=== PATIENT | female | born 1955 | race African-American/Black ===

== ENCOUNTER 2018-09-01 14:33 | Emergency (ER) | payer BC, OTHER ==
[2018-09-01 14:49] VITALS: BMI 31.5
--- NOTE | 2018-09-01 15:03 | PDOC ---
Attending Attestation - Resident Resident Name: Pamela Simms - ED Attending Attestation I have performed the following: I have examined & evaluated the patient, The case was reviewed & discussed with the resident, I agree w/resident's findings & plan, Exceptions are as noted - HPI HPI: 63 yo F history COPD/asthma presents with cough for past 3 weeks. She denies any change in sputum, but the cough is new from her baseline. +TREVINO. She has not been using her inhalers due to financial concerns (she states she has a high deductible for her insurance). No fever. - Physicial Exam PE: GENERAL: Awake, alert, and fully oriented, in no acute distress HEAD: No signs of trauma EYES: PERRLA, EOMI, sclera anicteric, conjunctiva clear ENT: Auricles normal inspection, hearing grossly normal, nares patent, oropharynx clear without exudates. Moist mucosa NECK: Normal ROM, supple, no lymphadenopathy, JVD, or masses LUNGS: Dec air entry B/L with intermittent dry, hacking cough. Scattered exp wheezes. HEART: Regular rate and rhythm, normal S1 and S2, no murmurs, rubs or gallops ABDOMEN: Soft, nontender, normoactive bowel sounds. No guarding, no rebound. No masses EXTREMITIES: Normal range of motion, no edema. No clubbing or cyanosis. No cords, erythema, or tenderness NEUROLOGICAL: Cranial nerves II through XII grossly intact. Normal speech, normal gait SKIN: Warm, Dry, normal turgor, no rashes or lesions noted. - Medical Decision Making Sxs likely bronchitis. Will treat with steroids, nebs, and azithro. CXR no acute findings. Stable for DC home.
[2018-09-01] MEDS ORDERED: IBUPROFEN 400 MG TABLET (FP) PO ONE (15:11)
[2018-09-01] MEDS ORDERED: predniSONE 20 MG TABLET (UD) PO ONE (15:11)
[2018-09-01] MEDS: ALBUTEROL SO4 2.5/IPRATROPIUM 0.5 INH SOL 3 ML VIAL.NEB. NEB SCH ×4 (15:15→16:05)
[2018-09-01] MEDS ORDERED: ALBUTEROL SO4 2.5/IPRATROPIUM 0.5 INH SOL 3 ML VIAL.NEB. NEB ONE ×2 (15:16→16:04)
[2018-09-01] MEDS ORDERED: predniSONE 20 MG TABLET (UD) ONE (15:16)
[2018-09-01] MEDS ORDERED: IBUPROFEN 600 MG TABLET (FP) PO ONE (15:17)
--- NOTE | 2018-09-01 15:31 | PDOC ---
History of Present Illness - General Chief Complaint: Shortness of Breath Stated Complaint: DIFF. BREATHING Time Seen by Provider: 09/01/18 14:43 - History of Present Illness Initial Comments: Tina Friend is a 63yo woman with a h/o COPD who presents reporting increased cough for the past 3 weeks. She additionally reports a severe frontal headache that worsens after bouts of coughing. She has not noticed any increased sputum, but she has been feeling more short of breath than normal and has not tried to walk any significant distances as she feels that she will probably become dyspnic. Ms Friend reports that she has been using a daily maintenance inhaler, but she has not been using most of her COPD prescriptions due to cost. She has been using her daughter's Proair multiple times per day with some relief, but her cough returns after only a few hours. She denies fevers, chills, chest pain, nasal or sinus congestion, sore throat, or rhinorrhea. She does note some mild general malaise. She also states that she requires antibiotics for COPD exacerbation 2-3 times per year, generally starting in early winter. Past History - Past Medical History Allergies/Adverse Reactions: Allergies Allergy/AdvReac Type Severity Reaction Status Date / Time No Known Allergies Allergy Verified 09/01/18 14:40 Home Medications: Ambulatory Orders Albuterol Sulfate Inhaler - [Ventolin HFA Inhaler -] 1 - 2 inh PO Q4H #1 inhaler 09/01/18 Azithromycin [Zithromax 250mg Tablets -] 250 mg PO UTDICT #6 tab 09/01/18 predniSONE [Deltasone -] 40 mg PO DAILY 4 Days #4 tablet 09/01/18 COPD: Yes - Surgical History Cholecystectomy: Yes - Suicide/Smoking/Psychosocial Hx Smoking History: Never smoked Review of Systems - Review of Systems Comments:: General: No fevers, no chills, no weight or appetite change, no malaise HEENT: No changes in vision, no changes in hearing, no congestion, no sore throat CV: No chest pain, no palpitations, no LE edema Pulm: +COPD, +cough, +SOB GI: No nausea or vomiting, no change in bowel habits, no melena : No frequency, no urgency, no dysuria Musc: No back pain, no joint swelling, no recent injury Skin: No rash, no lesions, no erythema Endo: No excessive thirst, no heat/cold intolerance Heme: No unusual bruising or bleeding, no swollen glands Neuro: No syncope, no numbness/tingling, no focal weakness Vasc: No claudication Psych: No recent change in mood, no SI or HI *Physical Exam - Vital Signs Last Vital Signs Temp Pulse Resp BP Pulse Ox 98.4 F 79 18 163/86 98 09/01/18 14:37 09/01/18 14:37 09/01/18 14:37 09/01/18 14:37 09/01/18 14:37 - Physical Exam Comments: General: Comfortable, no acute distress HEENT: PERRL, EOMI, MMM, voice normal, normal neck ROM, no sinus tenderness, no rhinorrhea Cards: RRR, no murmur appreciated Pulm: Distant breath sounds, no wheezing or crackles appreciated Abd: Soft, nontender, nondistended Ext: Atraumatic. No LE edema. ROM intact. Strength 5/5 and equal bilaterally Vasc: Extremities WWP. Palpable radial and pedal pulses bilaterally Skin: Normal color, no rashes or lesions Neuro: A&Ox3, CN grossly intact, normal speech, motor/sensory grossly intact and symmetric Psych: Mood appropriate to situation ED Treatment Course - RADIOLOGY Radiology Studies Ordered: Category Date Time Status CHEST PA & LAT [RAD] Stat Radiology 09/01/18 15:11 Ordered Medical Decision Making - Medical Decision Making 09/01/18 15:35 Tina Friend is a 63yo woman with a PMH of COPD who presents with three weeks of worsening cough, SOB, and frontal headache that suggtests COPD exacerbation. - No fever or systemic symptoms - Dry cough without significant sputum production - Most likely uncomplicated COPD exacerbation. 60mg prednisone ordered as symptoms have been present for 3 weeks. - Duoneb Q15 min ordered for cough, SOB - CXR to r/o underlying pneumonia or acute illness - Patent and her daughter decline labs at this time - Ibuprofen PO for headache. 09/01/18 15:55 - CXR reviewed. No acute abnormalities. Elevated left alyx-diaphragm previously seen, was present in 2009 - Received ibuprofen and prendisone. Some improvement in headache. Duonebs not started due to taking xray - 500mg azithromycin ordered for COPD exacerbation - Likely to discharge following completion of duoneb treatment if symptoms have improved. 11/18/18 16:39 - Duonebs completed. Cough and SOB significantly improved. - Held detailed discussion with Ms Friend and her daughter regarding home care. Plan to discharge with close follow up. Both state agreement and understanding with this plan. Discussed with Dr Alvarez. Pamela Simms PGY1 *DC/Admit/Observation/Transfer Diagnosis at time of Disposition: COPD exacerbation - Discharge Dispostion Disposition: HOME Condition at time of disposition: Stable Decision to Admit order: No - Prescriptions Prescriptions: Azithromycin [Zithromax 250mg Tablets -] 250 mg PO UTDICT #6 tab predniSONE [Deltasone -] 40 mg PO DAILY 4 Days #4 tablet - Referrals Referrals: Prabhakar Lott MD [Staff Physician] - - Patient Instructions Printed Discharge Instructions: DI for Chronic Obstructive Pulmonary Disease Additional Instructions: Discharge Instructions You were seen in the emergency room for increased coughing and headache, likely due to a COPD exacerbation and sinus congestion. Medications You have been prescribed several medications to use at home. - Prednisone 40mg should be taken daily for 4 days starting tomorrow - Azithromycin should be taken for 5 days. Take 2 tablets tomorrow and 1 tablet each of the next 4 days - You have been prescribed an albuterol inhaler for cough and shortness of breath. You may use 1-2 puffs every 4 hours as needed. - For continued headache, you may take ibuprofen 2-3 tablets (Advil or Motrin) or acetaminophen 2 tablets (Tylenol) every 6 hours. Home care Try to avoid dust, cold, pets, or whatever you have previously identified as triggers for your symptoms Take all previously prescribed medications such as inhalers Placing a humidifier next to your bed at night might help with your cough if you find that humidity improves your symptoms. Follow up Make an appointment to follow up with your agricultural equipment sales engineer. If you need to establish care with a new agricultural equipment sales engineer, you have been referred to Dr Lott. See your primary physician within the next 2-3 days to make sure that you are recovering appropriately Seek medical treatment if you have worsening cough or mucous production, if you develop fevers to 101F or shaking chills, if you have chest pain or sudden, severe shortness of breath, or if your symptoms do not improve after using your inhalers at home. - Post Discharge Activity
[2018-09-01] MEDS ORDERED: AZITHROMYCIN 500 MG TABLET PO ONE (15:50)
[2018-09-01] MEDS ORDERED: AZITHROMYCIN 500 MG TABLET ONE (16:04)
[2018-09-01 16:53] VITALS: BP 134/78; PULSE 92; TEMP 98.7
== END 2018-09-01 16:51 | disposition home or self-care (01) ==
LOC: JER 14:33
PROC: 3E0F7GC Introduction of Other Therapeutic Substance into Respiratory Tract, Via Natural or Artificial Opening (ICD-10-PCS; principal; 2018-09-01)
DX: J44.1 Chronic obstructive pulmonary disease with (acute) exacerbation (principal)
CPT/HCPCS: 71046-TC-FY; 94640; 99283-25